=== PATIENT | male | born 1970 | race American Indian/Alaskan Native ===

== ENCOUNTER 2021-05-29 22:00 | Emergency (ER) | payer SELFPAY ==
[2021-05-29] MEDS ORDERED: cloNIDine 0.1 MG TAB PO ONE (22:44)
--- NOTE | 2021-05-29 22:49 | Emergency Department Report ---
ED General Adult HPI - General Chief complaint: High BP Stated complaint: HYPERTENSIVE CRISIS Time Seen by Provider: 05/29/21 22:19 Source: patient Mode of arrival: Ambulatory Limitations: No Limitations - History of Present Illness Initial comments: Patient is 50 years old male with history of hypertension on Norvasc 10 mg daily. Patient stated that he is out of his blood pressure medicine for a month because of insurance issue. Patient presented to the ER complaining of headache and high blood pressure. Patient stated that he went to the fire department and he found that his blood pressure is really high. Patient denied any chest pain or shortness of breath. No weakness numbness or tingling sensation. - Related Data Home Medications Medication Instructions Recorded Confirmed Last Taken amLODIPine 10 mg PO 05/29/21 Unknown Allergies Allergy/AdvReac Type Severity Reaction Status Date / Time No Known Allergies Allergy Unverified 05/29/21 22:24 ED Review of Systems ROS: Stated complaint: HYPERTENSIVE CRISIS Other details as noted in HPI Comment: All other systems reviewed and negative Constitutional: denies: chills, fever Respiratory: denies: cough, shortness of breath, SOB with exertion Cardiovascular: denies: chest pain, palpitations Gastrointestinal: denies: abdominal pain, nausea, vomiting Musculoskeletal: denies: back pain Neurological: headache. denies: weakness, numbness, paresthesias, confusion, abnormal gait ED Past Medical Hx - Past Medical History Previous Medical History?: Yes Hx Hypertension: Yes - Surgical History Past Surgical History?: No - Medications Home Medications: Home Medications Medication Instructions Recorded Confirmed Last Taken Type amLODIPine 10 mg PO 05/29/21 Unknown History ED Physical Exam - General Limitations: No Limitations General appearance: alert, in no apparent distress - Head Head exam: Present: atraumatic, normocephalic, normal inspection - Eye Eye exam: Present: normal appearance, PERRL - ENT ENT exam: Present: normal exam, normal orophraynx, mucous membranes moist - Neck Neck exam: Present: normal inspection, full ROM. Absent: tenderness, meningis mus - Respiratory Respiratory exam: Present: normal lung sounds bilaterally - Cardiovascular Cardiovascular Exam: Present: regular rate, normal rhythm, normal heart sounds - GI/Abdominal GI/Abdominal exam: Present: soft, normal bowel sounds. Absent: distended, tenderness, guarding, rebound, rigid, organomegaly, mass, bruit, pulsatile mass, hernia - Extremities Exam Extremities exam: Present: normal inspection, full ROM, normal capillary refill. Absent: tenderness, pedal edema, joint swelling, calf tenderness - Back Exam Back exam: Present: normal inspection, full ROM. Absent: CVA tenderness (R), CVA tenderness (L) - Neurological Exam Neurological exam: Present: alert, oriented X3, CN II-XII intact, normal gait - Psychiatric Psychiatric exam: Present: normal mood. Absent: suicidal ideation - Skin Skin exam: Present: warm, intact, normal color ED Course Vital Signs 05/29/21 22:08 Temperature 98 F Pulse Rate 65 Respiratory 18 Rate Blood Pressure 195/97 [Right] O2 Sat by Pulse 100 Oximetry ED Medical Decision Making - Lab Data Result diagrams: 05/29/21 23:00 - Radiology Data Radiology results: report reviewed - Medical Decision Making Patient is 50 years old male with history of hypertension on Norvasc 10 mg daily. Patient stated that he is out of his blood pressure medicine for a month because of insurance issue. Patient presented to the ER complaining of head ache and high blood pressure. Patient stated that he went to the fire department and he found that his blood pressure is really high. Patient denied any chest pain or shortness of breath. No weakness numbness or tingling sensation. Patient received clonidine 0.1 mg with significant improvement in his blood pressure. Labs reviewed and is unremarkable CT brain is negative for acute finding. Patient given prescription for amlodipine 10 mg and advised to follow- up with his primary doctor in the next 2 to 3 days and to return to the ER if he develop any new symptoms. Critical care attestation.: If time is entered above; I have spent that time in minutes in the direct care of this critically ill patient, excluding procedure time. ED Disposition Clinical Impression: Acute headache, Malignant hypertension Disposition: HOME / SELF CARE / HOMELESS Is pt being admited?: No Condition: Stable Instructions: Hypertension (ED), Hypertension, Adult Referrals: GM GILLILAND MD [Staff Physician] - 3-5 Days
[2021-05-29 23:14] LABS: Basophils % (Auto) 0.6 % (0.0-1.8); Eosinophils # (Auto) 0.3 K/mm3 (0.0-0.4); Eosinophils % (Auto) 3.5 % (0.0-4.3); Hemoglobin 12.5 gm/dl (11.8-15.2); Lymphocytes # (Auto) 3.2 K/mm3 (1.2-5.4); Lymphocytes % (Auto) 42.2 % (13.4-35.0); Mean Corpuscular HGB Conc 32 % (32-34); Mean Corpuscular Volume 94 fl (84-94); Monocytes # (Auto) 0.8 K/mm3 (0.0-0.8); Monocytes % (Auto) 10.1 % (0.0-7.3); Platelet Count 282 K/mm3 (140-440); Red Blood Count 4.17 M/mm3 (3.65-5.03); Red Cell Distribution Width 13.3 % (13.2-15.2)
--- NOTE | 2021-05-29 23:30 | Cat Scan Report ---
CT HEAD WITHOUT CONTRAST INDICATION / CLINICAL INFORMATION: Headache. TECHNIQUE: All CT scans at this location are performed using CT dose reduction for ALARA by means of automated exposure control. COMPARISON: None available. FINDINGS: BRAIN PARENCHYMA: No acute intracranial hemorrhage. No evidence of recent infarct. No mass effect or midline shift. White matter chronic small vessel ischemic changes. VENTRICULAR SYSTEM/EXTRA-AXIAL SPACES: Ventricles are normal for age. No extra-axial fluid collection . ORBITS: Normal as visualized. SKELETAL SYSTEM/SOFT TISSUES: Normal bones and soft tissues. PARANASAL SINUSES/MASTOID AIR CELLS: No significant abnormality. ADDITIONAL FINDINGS: None. IMPRESSION: 1. No acute intracranial abnormality. Signer Name: Johnson Zavala MD Signed: 05/29/2021 11:26 PM Workstation Name: [id number]
[2021-05-29 23:36] LABS: BUN/Creatinine Ratio 20; Blood Urea Nitrogen 16 mg/dL (9-20); Calcium 9.6 mg/dL (8.4-10.2); Hemolysis Index 9
[2021-05-29 23:51] VITALS: BP 180/60
== END 2021-05-30 00:07 | disposition home or self-care (01) ==
LOC: ED 22:00
DX: R51.9 Headache, unspecified (principal); I10 Essential (primary) hypertension
CPT/HCPCS: 36415; 70450; 80048; 85025; 99284

== ENCOUNTER 2021-08-26 06:44 | Emergency (ER) | payer BC ==
[2021-08-26 07:03] VITALS: BP 136/82
--- NOTE | 2021-08-26 07:25 | Emergency Department Report ---
ED General Adult HPI - General Chief complaint: Earache Stated complaint: EAR DRAINING Time Seen by Provider: 08/26/21 07:11 Source: patient Mode of arrival: Ambulatory Limitations: No Limitations - History of Present Illness Initial comments: This is a pleasant 51-year-old male presents emerged department chief complaint of right ear pain and drainage for the past week. Patient reports started with some itching and some clear drainage and then started to become more like pus and we used a Q-tip this morning he noticed some blood. He denies any as sociated fever, chills, night sweats, headache, dizziness, or vision, nausea,, diarrhea, chest pain, shortness of breath, weakness or any other associated symptoms. - Related Data Home Medications Medication Instructions Recorded Confirmed Last Taken amLODIPine 10 mg PO 05/29/21 Unknown Previous Rx's Medication Instructions Recorded Last Taken Type amLODIPine 10 mg PO DAILY #30 tab 05/29/21 Unknown Rx Ciprofloxacin HCl/Dexameth 1 drop AD BID #7.5 ml 08/26/21 Unknown Rx [Ciprodex Otic Suspension] amLODIPine 10 mg PO DAILY #30 tab 08/26/21 Unknown Rx Allergies Allergy/AdvReac Type Severity Reaction Status Date / Time No Known Allergies Allergy Unverified 05/29/21 22:24 ED Review of Systems ROS: Stated complaint: EAR DRAINING Other details as noted in HPI Comment: All other systems reviewed and negative Constitutional: denies: chills, fever Eyes: denies: eye pain, eye discharge, vision change ENT: as per HPI, ear pain. denies: throat pain Respiratory: denies: cough, shortness of breath, wheezing Cardiovascular: denies: chest pain, palpitations Endocrine: no symptoms reported Gastrointestinal: denies: abdominal pain, nausea, diarrhea Genitourinary: denies: urgency, dysuria Musculoskeletal: denies: back pain, joint swelling, arthralgia Skin: denies: rash, lesions Neurological: denies: headache, weakness, paresthesias Psychiatric: denies: anxiety, depression Hematological/Lymphatic: denies: easy bleeding, easy bruising ED Past Medical Hx - Past Medical History Previous Medical History?: Yes Hx Hypertension: Yes - Medications Home Medications: Home Medications Medication Instructions Recorded Confirmed Last Taken Type amLODIPine 10 mg PO 05/29/21 Unknown History amLODIPine 10 mg PO DAILY #30 tab 05/29/21 Unknown Rx Ciprofloxacin HCl/Dexameth 1 drop AD BID #7.5 ml 08/26/21 Unknown Rx [Ciprodex Otic Suspension] amLODIPine 10 mg PO DAILY #30 tab 08/26/21 Unknown Rx ED Physical Exam - General Limitations: No Limitations General appearance: alert, in no apparent distress - Head Head exam: Present: atraumatic, normocephalic - Eye Eye exam: Present: normal appearance, PERRL, EOMI Pupils: Present: normal accommodation - ENT ENT exam: Present: normal exam, normal orophraynx, mucous membranes moist, other (Bilateral tympanic membranes are normal. External auditory canal on the right is erythematous with some purulent material in the external auditory canal.) - Neck Neck exam: Present: normal inspection, full ROM. Absent: tenderness, meningismus - Respiratory Respiratory exam: Present: normal lung sounds bilaterally. Absent: respiratory distress, wheezes, rales, rhonchi, stridor - Cardiovascular Cardiovascular Exam: Present: regular rate, normal rhythm, normal heart sounds. Absent: systolic murmur, diastolic murmur, rubs, gallop - GI/Abdominal GI/Abdominal exam: Present: soft, normal bowel sounds. Absent: distended, tenderness, guarding, rebound, rigid - Rectal Rectal exam: Present: deferred - Extremities Exam Extremities exam: Present: normal inspection, full ROM, normal capillary refill. Absent: tenderness - Back Exam Back exam: Present: normal inspection - Neurological Exam Neurological exam: Present: alert, oriented X3 - Psychiatric Psychiatric exam: Present: normal affect, normal mood - Skin Skin exam: Present: warm, dry, intact, normal color. Absent: rash ED Course Vital Signs 08/26/21 07:01 Temperature 97.9 F Pulse Rate 64 Respiratory 16 Rate Blood Pressure 136/82 [Right] O2 Sat by Pulse 100 Oximetry ED Medical Decision Making - Medical Decision Making Exam consistent with otitis externa. Will cover the patient with topical antibiotics recommend outpatient follow-up with primary care doctor. Patient also requested a refill of his amlodipine which I will give. Recommend he return to the ER with any change or worsening symptoms. No symptoms of malignant otitis externa or mastoiditis on exam. - Differential Diagnosis Otitis externa, otitis media, respiratory infection Critical care attestation.: If time is entered above; I have spent that time in minutes in the direct care of this critically ill patient, excluding procedure time. ED Disposition Clinical Impression: Otitis externa Qualifiers: Otitis externa type: other infective Chronicity: acute Laterality: right Qualified Code(s): H60.391 - Other infective otitis externa, right ear Disposition: HOME / SELF CARE / HOMELESS Is pt being admited?: No Condition: Stable Prescriptions: amLODIPine 10 mg PO DAILY #30 tab Ciprofloxacin HCl/Dexameth [Ciprodex Otic Suspension] 1 drop AD BID #7.5 ml Forms: Work/School Release Form(ED) Time of Disposition: 07:23
== END 2021-08-26 08:18 | disposition home or self-care (01) ==
LOC: ED 06:44
DX: H60.91 Unspecified otitis externa, right ear (principal); I10 Essential (primary) hypertension
CPT/HCPCS: 99282